=== PATIENT | female | born 1950 | race African-American/Black ===

== ENCOUNTER → 2016-12-25 | Outpatient (CLI) | payer OTHER ==
--- NOTE | 2016-12-25 10:38 | REP ---
Right knee, Five views. History: Pain in the lateral aspect of the right knee. No comparison radiographs. Findings: Five views of the right knee demonstrate moderate three compartment osteoarthritis with tibiofemoral spurring and sclerosis most pronounced in the lateral compartment. There is a fabella noted posterolaterally. Patellofemoral spurring is seen as well. No joint effusion is seen. No acute erosive change. Impression: Moderate three compartment osteoarthritis. Signed by Rigo Matthew MD 12/25/2016 10:41 A
== END ==
LOC: MERGE 09:46 → M LRY 09:46
PROVIDERS: ATTEND Family Medicine
DX: M17.11 Unilateral primary osteoarthritis, right knee (principal)

== ENCOUNTER → 2016-12-27 | Outpatient (CLI) | payer OTHER ==
--- NOTE | 2016-12-31 10:43 | SLEEPHOME ---
DATE OF STUDY: 12/27/2016 ORDERING PROVIDER: Dr. Rylee Keys Diagnostic home sleep testing was performed due to concern for the obstructive sleep apnea syndrome in this patient with hypertension and excessive daytime somnolence. For testing, a NOX-T3 respiratory monitoring device was used. Continuous record was made of pulse, oxygen saturation, airflow, chest and abdominal strain, and body position. Shortly after onset of testing, the patient displaced the oximetry probe. 9 hours and 59 minutes of data were reviewed. Of these, 6 hours and 57 minutes were marked as time in bed. During the interval marked time in bed, there were 62 respiratory events identified of 10 seconds in duration or greater for a respiratory event index of 8.9. The events were more frequently central (37 central apneas, 25 obstructive). There was no clear relationship to position. The events were scattered over the course of the recording. Oximetric data and pulse data were unavailable due to displacement of recording leads. IMPRESSION: Abnormal home sleep testing with repetitive respiratory events and a respiratory event index of 8.9 is consistent with complex obstructive sleep apnea syndrome. RECOMMENDATION: Given the occurrence of central events on this testing and the absence of oximetric data, formal in-laboratory diagnostic testing with nocturnal polysomnography is recommended prior to consideration of pressure therapy.
== END ==
LOC: M SLEEP HO 12:01 → MERGE 15:34
PROVIDERS: ATTEND Family Medicine
DX: G47.19 Other hypersomnia (principal)

== ENCOUNTER → 2016-12-31 | Outpatient (CLI) | payer OTHER ==
--- NOTE | 2016-12-31 13:23 | REPMRS ---
Patient History The patient states she has not had a clinical breast exam in over a year. Patient has history of ovarian cancer at age 32. Family history of ovarian cancer in sister under age 50 and colorectal cancer in maternal aunt at age 45. Digital Mammo Screening Bilat: December 31, 2016 - Exam #: [id number] Bilateral CC and MLO view(s) were taken. Technologist: Cindi Mendez, Technologist No prior studies available for comparison. FINDINGS: There are scattered fibroglandular densities. There is no evidence of dominant mass, architectural distortion, or clustered microcalcification typical of malignancy. ASSESSMENT: BI-RADS/ACR category 1 mammogram. Negative. Recommendation Routine screening mammogram of both breasts in 1 year (for women over age 40). This mammogram was interpreted with the aid of an FDA-approved computer-aided dectection system. Electronically Signed By: Shorty Matthew MD 12/31/16 [id number]
== END ==
LOC: M RAD 12:32
PROVIDERS: ATTEND Family Medicine
DX: Z12.39 Encounter for other screening for malignant neoplasm of breast (principal)

== ENCOUNTER 2017-02-03 13:21 | Emergency (ER) | payer OTHER ==
[~2017-02-03] VITALS: Ht 162.6 cm; Wt 78.0 kg
[2017-02-03] MEDS ORDERED: CARV3.12 PO (13:43)
[2017-02-03] MEDS ORDERED: ATOR40TA PO (13:43)
[2017-02-03] MEDS ORDERED: LOSA50TA21 PO (13:43)
[2017-02-03] MEDS ORDERED: LEVO175T2 PO (13:43)
[2017-02-03] MEDS ORDERED: ASPI81TA85 PO (13:43)
[2017-02-03] MEDS ORDERED: PLAV75TA38 PO (13:43)
[2017-02-03] MEDS ORDERED: NS 1,000 ML IV ONE (16:30)
[2017-02-03] MEDS ORDERED: ONDANSETRON 4MG/2ML VIAL (J2405) IV ONE (16:30)
[2017-02-03] MEDS ORDERED: PANTOPRAZOLE 40MG INJ (PROTONIX) (C9113) IV ONE (16:30)
[2017-02-03 17:21] LABS: INR 0.96
[2017-02-03 17:33] LABS: BASO % 0.3 % (0.0-1.0); EOS # 0.1 K/mm3 (0.0-0.50); EOS % 2.3 % (0.0-3.0); LARGE UNSTAINED CELL # 0.2 K/mm3 (0.0-0.4); LARGE UNSTAINED CELL % 3.8 % (0.0-4.0); LYMPH # 1.6 K/mm3 (1.5-4.5); LYMPH % 36.1 % (24.0-44.0); MEAN CORPUSCULAR HEMOGLOBIN 26.3 pg (27.0-33.0); MEAN CORPUSCULAR HGB CONC 31.7 g/dl (32.0-36.5); MEAN CORPUSCULAR VOLUME 82.9 fl (80.0-96.0); MONO # 0.3 K/mm3 (0.0-0.8); MONO % 6.8 % (0.0-5.0); NEUTROPHILS # 2.3 K/mm3 (1.8-7.7); NEUTROPHILS % 50.6 % (36.0-66.0); PLATELET COUNT, AUTOMATED 220 k/mm3 (150-450); WHITE BLOOD COUNT 4.4 K/mm3 (4.0-10.0)
[2017-02-03 17:43] LABS: ALBUMIN 3.7 GM/DL (3.2-5.2); ALBUMIN/GLOBULIN RATIO 1.09 (1.00-1.93); ALKALINE PHOSPHATASE 103 U/L (45-117); ALT/SGPT 33 U/L (12-78); AMYLASE 75 U/L (25-115); ANION GAP 9 MEQ/L (8-16); AST/SGOT 22 U/L (15-37); BILIRUBIN,DIRECT 0.1 MG/DL (0.0-0.2); BILIRUBIN,TOTAL 0.4 MG/DL (0.2-1.0); BLOOD UREA NITROGEN 19 MG/DL (7-18); CALCIUM LEVEL 8.7 MG/DL (8.8-10.2); CARBON DIOXIDE LEVEL 29 MEQ/L (21-32); CHLORIDE LEVEL 106 MEQ/L (98-107); CREATININE FOR GFR 0.86 MG/DL (0.55-1.02); GLOMERULAR FILTRATION RATE > 60.0 (>45); GLUCOSE, FASTING 80 MG/DL (80-110); POTASSIUM SERUM 3.7 MEQ/L (3.5-5.1); SODIUM LEVEL 144 MEQ/L (136-145); TOTAL PROTEIN 7.1 GM/DL (6.4-8.2)
--- NOTE | 2017-02-03 18:14 | REP ---
CT study of the abdomen and pelvis without IV or oral contrast: Renal stone protocol. History: Abdominal pain and distension. No comparison study. Findings: Preliminary digital nuclear officer radiograph demonstrates scattered surgical clips in the abdomen. The patient reports previous hysterectomy and cholecystectomy. There is also metallic screw and bony fusion at the lumbosacral junction. Bowel gas pattern is normal. The lung bases are clear on axial CT images. The liver and the spleen are normal in size and homogeneous in texture. There are a few scattered splenic granulomatous calcifications. There are clips in the gallbladder fossa. No adrenal lesion is seen. The pancreas is unremarkable. No intrarenal calculus is observed. An extrarenal pelvis configuration is seen in the right kidney. No ureteral calculus is seen. The bladder is unremarkable. Uterus is surgically absent. There is left colonic diverticulosis. There is mild pericolonic fat streaking along the superior and left lateral margin of the sigmoid and distal descending colon consistent with mild diverticulitis. There is no evidence of free air or abscess. No abdominal wall defect is seen. Bone window settings show postoperative fusion of the lower lumbar spine. No bony destructive lesion is appreciated. Impression: No obstructive lesion is seen. Left colonic diverticulosis; question early diverticulitis changes sigmoid and distal descending segments of the colon. Postoperative changes. Otherwise no acute intra-abdominal abnormality. Signed by Rigo Matthew MD 02/03/2017 07:22 P
[2017-02-03] MEDS ORDERED: CIPROFLOXACIN 500 MG TAB PO ONE (19:15)
[2017-02-03] MEDS ORDERED: metroNIDAZOLE (FLAGYL) 500 MG TAB PO ONE (19:15)
[2017-02-03] MEDS ORDERED: metroNIDAZOLE (FLAGYL) 250 MG TAB As Ordered ONE (19:24)
[2017-02-03] MEDS ORDERED: NORC5TAB PO (19:53)
[2017-02-03] MEDS ORDERED: ZOFR4TAB3 PO (19:53)
[2017-02-03] MEDS ORDERED: CIPR500T89 PO (19:53)
[2017-02-03] MEDS ORDERED: FLAG500T PO (19:53)
[2017-02-03 19:59] VITALS: BP 134/67
== END 2017-02-03 20:17 | disposition home or self-care (01) ==
LOC: M ED 14:32
DX: K57.32 Diverticulitis of large intestine without perforation or abscess without bleeding (principal); R11.10 Vomiting, unspecified; I10 Essential (primary) hypertension; I25.10 Atherosclerotic heart disease of native coronary artery without angina pectoris; E78.5 Hyperlipidemia, unspecified; Z95.5 Presence of coronary angioplasty implant and graft; Z88.8 Allergy status to other drugs, medicaments and biological substances; Z79.899 Other long term (current) drug therapy; Z79.82 Long term (current) use of aspirin
CPT/HCPCS: 74176; 80048; 80076; 82150; 82550; 82553; 83690; 85025; 85610; 85730; 86850; 93041; 96361; 96374; 96375; 99284; C9113; J2405

== ENCOUNTER → 2017-02-06 | Outpatient (REF) | payer MEDICARE, MEDICAID ==
[~2017-02-06] MED LIST: ASPI81TA85 PO; ATOR40TA PO; CARV3.12 PO; CIPR500T89 PO; FLAG500T PO; LEVO175T2 PO; LOSA50TA21 PO; NORC1TAB4 PO; PLAV75TA38 PO; ZOFR4TAB3 PO
[2017-02-06 21:55] LABS: CHOLESTEROL LEVEL 159 MG/DL (<200); GLUCOSE, FASTING 104 MG/DL (80-110); TRIGLYCERIDES LEVEL 106 MG/DL (<150)
[2017-02-07 09:26] LABS: HIV SCRN NEGATIVE (NEGATIVE)
[2017-02-07 09:27] LABS: CONTROL LINE INT CTR LINE PRESENT; HIV SCRN1 NEGATIVE (NEGATIVE)
[2017-02-12 14:16] LABS: T PALLIDUM ANTIBODIES Positive (Negative); T PALLIDUM IMMUNOBLOT Indeterminate (Negative)
== END ==
LOC: M SFHCPLAZ 09:46
PROVIDERS: ATTEND Family Medicine
DX: Z11.3 Encounter for screening for infections with a predominantly sexual mode of transmission (principal); E78.00 Pure hypercholesterolemia, unspecified; E89.0 Postprocedural hypothyroidism; A08.4 Viral intestinal infection, unspecified; M17.11 Unilateral primary osteoarthritis, right knee; E66.01 Morbid (severe) obesity due to excess calories
CPT/HCPCS: 36415; 80061; 82947; 84443; 86592; 86780; 87491; 87591; 87806; G0463

== ENCOUNTER → 2017-02-15 | Outpatient (CLI) | payer MEDICARE, OTHER ==
[~2017-02-15] MED LIST changes: -NORC1TAB4 PO; +NORC5TAB PO
== END ==
LOC: M SLEEP 19:45
PROVIDERS: ATTEND Nurse Practitioner Adult Health
DX: G47.30 Sleep apnea, unspecified (principal)

== ENCOUNTER → 2017-06-09 | Outpatient (CLI) | payer MEDICARE, MEDICAID ==
[~2017-06-09] MED LIST changes: -ATOR40TA PO; +ATOR40TA75 PO; +CIPR-249 PO; -CIPR500T89 PO; -LOSA50TA21 PO; +LOSA50TA5 PO; +NORC1TAB4 PO; -NORC5TAB PO; +PLAV1TAB2 PO; -PLAV75TA38 PO
--- NOTE | 2017-06-11 09:56 | DEXA ---
AP SPINE L1 - L4 1.370 1.4 2.3 LT FEMUR TOTAL 1.053 0.4 0.6 RT FEMUR TOTAL 1.028 0.2 0.4 TOTAL BODY TOTAL OTHER DUAL FEMUR FRAX* ASSESSMENT Risk factors: CULLEN/BSO age 32. 10 year probability of fracture Major osteoporotic fracture 3.4 % Hip fracture 0.2 % COMMENTS: Normal bone densitometry of the spine and hips. FOLLOW-UP: Recommendation for the next bone density exam: 5 years. MTDD
== END ==
LOC: M WHC 10:36
PROVIDERS: ATTEND Family Medicine
DX: Z13.820 Encounter for screening for osteoporosis (principal); M17.11 Unilateral primary osteoarthritis, right knee; E89.0 Postprocedural hypothyroidism; M79.672 Pain in left foot

== ENCOUNTER → 2017-06-11 | Outpatient (CLI) | payer MEDICARE ==
--- NOTE | 2017-06-19 08:30 | SLEEPCENT ---
DATE OF PROCEDURE: 06/11/2017 REFERRING PHYSICIAN: Rosalinda Bai Nocturnal polysomnography was performed for the titration of pressure therapy in this patient with obstructive sleep apnea syndrome, apnea-hypopnea index of 15.7. For testing, the patient was fit with a [employer] full face mask of small size, 9 cm of water pressure was initially applied to the circuit, and the lights were extinguished. 8 hours and 43 minutes of data were reviewed. There were 485 minutes of sleep identified. Sleep latency was quite short at 1 minute. Rapid eye movement (REM) latency was also short at 45 minutes. Sleep architecture was good. There were five REM periods appreciated. Overall sleep efficiency was 94%. The patient's EKG showed a sinus rhythm with an average heart rate of 60 beats per minute. EEG showed normal waveforms for awake and sleep. Respiratory events were best palliated with CPAP at a pressure 13. CPAP tolerance was good. Some limb activity was noted, but arousals from limb events occurred only 4.9 times per hour. IMPRESSION: Obstructive sleep apnea syndrome (G47.33). RECOMMENDATION: Nightly use of pressure therapy at 13 cm of water.
== END ==
LOC: M SLEEP 19:58
PROVIDERS: ATTEND Nurse Practitioner Adult Health
DX: G47.33 Obstructive sleep apnea (adult) (pediatric) (principal)